=== PATIENT | female | born 1945 | race Caucasian/White ===

== ENCOUNTER 2021-07-09 17:57 | Outpatient (CLI) | payer MEDICARE, OTHER, SELFPAY ==
[2021-07-09 18:22] VITALS: BP 127/58; PULSE 75; RESP 16; TEMP 36.5; O2SAT 98; BMI 23.8
[2021-07-09] MEDS: 0.9% Saline Lock 10 ML Syringe IV (18:27)
[2021-07-09 18:54] VITALS: BP 118/57; PULSE 63; RESP 16; TEMP 36.4; O2SAT 100
[2021-07-09 19:54] VITALS: BP 131/62; PULSE 65; RESP 16; TEMP 36.4; O2SAT 100
== END 2021-07-09 23:59 | disposition home or self-care (01) ==
LOC: MS3OUT 17:59 → MS3 18:00
PROVIDERS: PCP Internal Medicine; Referring Provider Nurse Practitioner Acute Care; Visit Provider Nurse Practitioner Acute Care
DX: Z23 Encounter for immunization (principal); U07.1 COVID-19
CPT/HCPCS: J7050; M0243; A4216; Q0244